=== PATIENT | male | born 1940 | race Caucasian/White ===

== ENCOUNTER 2022-04-28 14:22 | Outpatient (CLI) | payer OTHER | END 2022-04-28 14:54 | disposition home or self-care (01) | LOC: MRI 14:22 | PROVIDERS: ATTEND Neuromusculoskeletal Medicine & OMM | DX: I72.9 Aneurysm of unspecified site (principal); I65.1 Occlusion and stenosis of basilar artery; I65.09 Occlusion and stenosis of unspecified vertebral artery; I65.29 Occlusion and stenosis of unspecified carotid artery; Q28.2 Arteriovenous malformation of cerebral vessels; F09 Unspecified mental disorder due to known physiological condition; F03.90 Unspecified dementia, unspecified severity, without behavioral disturbance, psychotic disturbance, mood disturbance, and anxiety | CPT/HCPCS: 70544; 70551 ==

== ENCOUNTER 2023-04-27 07:50 | Outpatient (CLI) | payer OTHER | END 2023-04-27 07:51 | disposition home or self-care (01) | LOC: NUCLEAR 07:50 | PROVIDERS: ATTEND Internal Medicine Cardiovascular Disease | DX: I20.89 Other forms of angina pectoris (principal) | CPT/HCPCS: 78452; 93017; A9500; J0153 ==

== ENCOUNTER 2023-11-28 13:04 | Emergency (ER) | payer OTHER ==
[~2023-11-28] VITALS: Ht 167.6 cm; Wt 60.8 kg
[2023-11-28] MEDS ORDERED: BRILINTA90 MG (13:53)
[2023-11-28] MEDS ORDERED: ROSUVASTATIN CA20 MG (13:53)
[2023-11-28] MEDS ORDERED: AMLODIPINE BESYL5 MG (13:53)
[2023-11-28] MEDS ORDERED: CLINDAMYCIN PHOSPHATE 150 MG/ML (600mg) IV STA (15:45)
[2023-11-28] MEDS ORDERED: TRAMADOL HCL 50 MG TABLET PO STA (15:45)
[2023-11-28] MEDS ORDERED: LACTOBACILLUS ACIDOPHILUS 1 CAP CAP PO STA (15:47)
[2023-11-28] MEDS ORDERED: CLINDAMYCIN PHOSPHATE 150 MG/ML (900mg) ONE (15:56)
[2023-11-28] MEDS ORDERED: METHYLPREDNISOLONE SOD SUCC 125 MG VIAL ONE (16:25)
[2023-11-28] MEDS ORDERED: LACTOBACILLUS ACIDOPHILUS 1 CAP CAP PO ONE (16:25)
[2023-11-28] MEDS ORDERED: METHYLPREDNISOLONE SOD SUCC 125 MG VIAL IV ONE (16:30)
[2023-11-28] MEDS ORDERED: levoFLOXacin IN DEXTROSE 5 % 5 MG/ML PIGGYBAG IV ONE (16:30)
== END 2023-11-28 19:12 | disposition home or self-care (01) ==
LOC: ER 13:06
DX: M27.2 Inflammatory conditions of jaws (principal); Z88.0 Allergy status to penicillin
CPT/HCPCS: 96365; 99282; J1956; J3490